=== PATIENT | male | born 1980 | race Two or more races ===

== ENCOUNTER 2017-03-31 19:12 | Emergency (ER) | payer MEDICAID ==
--- NOTE | 2017-03-31 20:23 | ER PHYSICIAN DOCUMENTATION ---
Physician Documentation [place] [facility] Name:Lazaro Avendaño Age:36 yrs Sex:Male :1980 Arrival Date:03/31/2017 Time:19:12 Bed4 Private MD: Zechariah Martini Disposition: 03/31/17 20:02 Discharged to Home/Self Care. Impression: Internal Derangement of Knee. - Condition is Good. - Discharge Instructions: KNEE PAIN, Uncertain Cause, KNEE INJURY Cruciate Ligament - CRUCIATE LIGAMENT INJURY. - Medical Reconciliation form form. - Follow up: Private Physician; When: 4- 6 days; Reason: Continuance of care. - Problem is new. - Symptoms have improved. HPI: 03/31 20:58 This 36 yrs old OOther Male presents to ER via Walk In with complaints of Knee Injury - jm LEFT. 20:58 The patient presents with decreased range of motion, an injury, pain, that is acute. jm The complaints affect the left knee. Context: resulted from playing sports, football, the patient is not able to bear weight, crutches. Onset: The symptom(s)/episode began/occurred today. Associated signs and symptoms: Pertinent positives: swelling, Pertinent negatives calf tenderness. Pt had either ACL or MCL reconstructed many years ago. He heard a pop in his knee playing football yesterday and has been unable to bare wt, so he finally came into the ER. . Historical: - Allergies: No known drug Allergies; - Home Meds: 1. None - PSHx: left knee scope; - Tetanus: < 10 years. - Ebola Screening: : No symptoms or risks identified at this time. . - Immunization history: Flu Vaccine < 1 year. - Social history: Smoking status: Patient states was never smoker of tobacco. ROS: 20:58 Constitutional: Negative for malaise. jm 20:58 MS/extremity: Positive for injury or acute deformity. 20:58 Neuro: Positive for gait disturbance. Exam: 20:58 Constitutional: The patient appears alert, awake, comfortable. jm 20:58 Musculoskeletal/extremity: Extremities: grossly normal except: noted in the left knee: decreased ROM, pain, swelling, Pulses: are normal with no appreciated deficits, Weight bearing: is unable to bear weight. 20:58 Psych: Behavior/mood is pleasant, cooperative, Affect is calm. Vital Signs: 19:18 BP 136 / 87 RA Sitting (auto/reg); Pulse 80 RA; Resp 20 S; Temp 98.2(O); Pulse Ox 93% em3 on R/A; Weight 81.65 kg (R); Height 5 ft. 11 in. (180.34 cm) (R); Pain 7/10; 19:18 Body Mass Index 25.10 (81.65 kg, 180.34 cm) em3 MDM: 19:25 Patient medically screened. 21:01 Differential diagnosis: ALC/MCL injury. Data reviewed: vital signs, nurses notes, jm radiologic studies, and as a result, I will discharge patient. Test interpretation: by ED physician or midlevel provider: plain radiologic studies. Counseling: I had a detailed discussion with the patient and/or guardian regarding: the historical points, exam findings, and any diagnostic results supporting the discharge/admit diagnosis, the need for outpatient follow up, a orthopedic surgeon. ED course: No injury noted on xray. Pt w medial to posterior pain suspicious for ligament injury. Pt encouraged to see ortho in [place] and obtain MRI. . 03/31 20:00 Order name: KNEE; [address] [place] [id number] EDMS 03/31 22:36 Order name: KNEE; [address] [place] [id number] EDMS Dispensed Medications: No medications were administered Signatures: Zechariah Romero MD MD jm King, Melody mk4
--- NOTE | 2017-03-31 20:23 | ER NURSING DOCUMENTATION ---
Nurse's Notes [facility] Name:Lazaro Avendaño Age:36 yrs Sex:Male :1980 Arrival Date:03/31/2017 Time:19:12 Bed4 Private MD: Diagnosis:Internal Derangement of Knee Presentation: 03/31 19:26 Presenting complaint: Patient states: Left knee pain and edema. Injured while playing [facility] football. Transition of care: Home. 19:26 Method Of Arrival: Walk In [facility] 19:26 Acuity: AG 4 [facility] Triage Assessment: 19:29 General: Appears in no apparent distress, Behavior is cooperative. Pain: Complains of [facility] pain in left knee Pain does not radiate. Pain currently is 8 out of 10 on a pain scale. EENT: No deficits noted. Neuro: No deficits noted. Cardiovascular: Chest pain is denied. Respiratory: Airway is patent Respiratory effort is even, unlabored. GI: No deficits noted. : No deficits noted. Derm: Bruising that is dark purple, on left knee. Musculoskeletal: Circulation, motion, and sensation intact Capillary refill < 3 seconds. Injury Description: Crush injury was sustained 1 day ago. Historical: - Allergies: No known drug Allergies; - Home Meds: 1. None - PSHx: left knee scope; - Tetanus: < 10 years. - Ebola Screening: : No symptoms or risks identified at this time. . - Immunization history: Flu Vaccine < 1 year. - Social history: Smoking status: Patient states was never smoker of tobacco. Screenin:20 Infectious Disease Risk None. Abuse screen: Denies. Nutritional screening: No deficits [facility] noted. Assessment: 19:51 See Triage Assessment done by same RN. [facility] Vital Signs: 19:18 BP 136 / 87 RA Sitting (auto/reg); Pulse 80 RA; Resp 20 S; Temp 98.2(O); Pulse Ox 93% em3 on R/A; Weight 81.65 kg (R); Height 5 ft. 11 in. (180.34 cm) (R); Pain 7/10; 19:18 Body Mass Index 25.10 (81.65 kg, 180.34 cm) em3 ED Course: 19:14 Patient arrived in ED. ma1 19:17 Amber Cuba is Primary Nurse. 4 19:20 Valuables Remains with patient. Door closed. Noise minimized. Ice pack to injury. mk4 19:25 Zechariah Romero MD is Attending Physician. luis 19:28 Triage completed. mk4 19:51 Arm band placed on Bed in low position Call Light in Reach Side rails up x2. X-ray done.mk4 19:55 Patient moved to radiology. hz 20:00 KNEE; [address] [place] [id number] In Process Unspecified. EDMS 20:02 Patient moved back from radiology. hz 20:03 KNEE; [address] [place] [id number] Sent. hz 20:05 KNEE; [address] [place] [id number] In Process Unspecified. EDMS 20:20 Knee immobilizer applied on left knee. mk4 Administered Medications: No medications were administered Outcome: 20:02 Discharge ordered by . luis 20:21 Discharged to home ambulatory. 4 20:21 Condition: good 20:21 Discharge Assessment: Patient awake, alert and oriented x 3. No cognitive and/or functional deficits noted. Patient verbalized understanding of disposition instructions. 20:21 Discharge instructions given to patient, Instructed on crutch walking, discharge instructions, follow up and referral plans. Brought own crutches Demonstrated understanding of 20:22 Patient left the ED. 4 Signatures: Dispatcher [employer] EDZechariah Swan MD MD jm Meiklejohn, Eric em3 Amber Cuba mk4 Smita Inman Cora Can ga1
--- NOTE | 2017-03-31 22:34 | RADIOLOGY REPORT ---
HISTORY: Left knee injury. COMPARISON: None. FINDINGS: 3 views of the knee obtained. There is no fracture. There appears to be changes related to prior ve nous ACL repair; recommend clinical correlation with patient's operative history. Suprapatellar dens ity consistent with small to moderate-sized knee joint effusion. IMPRESSION: Small to moderate-sized knee joint effusion. No evidence of fracture. Probable previous ACL repair; recommend clinical correlation patient's operative history. Final Electronic Signature: This report was electronically signed by Vince Pastrana MD on 03/31/2017 10 :32 PM. breezy /
== END 2017-03-31 20:23 | disposition home or self-care (01) ==
LOC: ER 19:12
DX: M23.92 Unspecified internal derangement of left knee (principal); M79.89 Other specified soft tissue disorders; Y92.321 Football field as the place of occurrence of the external cause; Y93.61 Activity, american tackle football
CPT/HCPCS: 99283